=== PATIENT | female | born 1995 | race Caucasian/White ===

== ENCOUNTER 2016-09-28 13:34 | Outpatient (CLI) | payer MEDICAID | END 2016-09-28 13:35 | disposition home or self-care (01) | DX: K29.70 Gastritis, unspecified, without bleeding (principal) ==

== ENCOUNTER 2016-10-03 16:15 | Outpatient (CLI) | payer MEDICAID | END 2016-10-03 16:30 | disposition home or self-care (01) | LOC: RT.N 16:15 | PROVIDERS: ATTEND Physician Assistant | DX: R00.0 Tachycardia, unspecified (principal) | CPT/HCPCS: 93005 ==

== ENCOUNTER 2017-05-12 09:44 | Emergency (ER) | payer MEDICAID ==
--- NOTE | 2017-05-12 10:44 | XRAY Preliminary Report ---
Exam: XR KNEE 4 VIEW RT IMPRESSION: Small amount of knee joint effusion without degenerative arthritis, bony lesion or sublux ation, of uncertain etiology. [facility] SITE ID: [id number]
--- NOTE | 2017-05-12 10:47 | XRAY Report ---
EXAM: RIGHT KNEE RADIOGRAPHY EXAM DATE: 05/12/2017 10:18 AM. CLINICAL HISTORY: Pain for 3 days, denies injury. COMPARISON: None. TECHNIQUE: 4 views. FINDINGS: Bones: No fractures or bone lesions. Joints: Small amount of effusion without degenerative process. No subluxations. Soft Tissues: No soft tissue swelling or calcification. IMPRESSION: Small amount of knee joint effusion without degenerative arthritis, bony lesion or sublux ation, of uncertain etiology. [facility] Referring Provider Line: [phone] SITE ID: [id number]
--- NOTE | 2017-05-12 12:16 | ED Physician Documentation ---
PD HPI LOWER EXT INJURY - Stated complaint Stated Complaint: R KNEE PX - Chief complaint Chief Complaint: Ext Problem - History obtained from History obtained from: Patient, Family - History of Present Illness PD HPI LOW EXT INJURY LOCATION: Right, Knee Type of injury: Other (unknown injury) Where injury occurred: Home Timing - onset: How many days ago (3) Timing - duration: Days (3) Timing - details: Gradual onset, Still present Improved by: Rest, Immobilization Worsened by: Other (weight bearing) Associated symptoms: No: Weakness, Numbness, Tingling, Swelling Contributing factors: No: Anticoagulated Similar symptoms before: Has not had sx before Recently seen: Not recently seen - Additional information Additional information: 21 y/o female awoke 3 days ago with pain in the anterior calf below the knee without explanation. The pain has shifted to the knee and worsened. It is not present at rest but present with weight bearing and causing a limp. She has not had an injury that she can recall and she denies excessive walking. She did have a job she was on her feet for long hours but she quit that about 10 days ago and she denies any pain in the knee then. She usually is inactive. She has not had a fever and she does not feel ill. Review of Systems Constitutional: denies: Fever, Chills, Myalgias, Fatigue, Sweats Eyes: denies: Decreased vision Ears: denies: Ear pain Nose: denies: Congestion Throat: denies: Sore throat Cardiac: denies: Chest pain / pressure, Palpitations Respiratory: denies: Dyspnea, Cough GI: denies: Abdominal Pain, Nausea, Vomiting, Constipation, Diarrhea : denies: Dysuria, Frequency Skin: denies: Rash Musculoskeletal: reports: Joint pain, Joint swelling, Pain with weight bearing. denies: Neck pain, Back pain PD PAST MEDICAL HISTORY - Past Medical History Past Medical History: Yes Cardiovascular: None Respiratory: Asthma Neuro: None Endocrine/Autoimmune: None GI: None - Past Surgical History Past Surgical History: No - Present Medications Home Medications: Ambulatory Orders Medication Instructions Recorded Confirmed Albuterol Sulfate [Proair Hfa 05/12/17 Inhaler] - Allergies Allergies/Adverse Reactions: Allergies Allergy/AdvReac Type Severity Reaction Status Date / Time No Known Drug Allergies Allergy Verified 04/13/16 09:31 - Social History Does the pt smoke?: No Smoking Status: Never smoker Does the pt drink ETOH?: No Does the pt have substance abuse?: No - Immunizations Immunizations are current?: Yes PD ED PE NORMAL - Vitals Vital signs reviewed: Yes - General General: Alert and oriented X 3, No acute distress, Well developed/nourished - HEENT HEENT: Atraumatic, PERRL, EOMI - Respiratory Respiratory: No respiratory distress - Derm Derm: Normal color, Warm and dry, No rash - Extremities Extremities: No deformity, No edema, No calf tenderness / cord, Other (There is a non-tender palpable effusion and the ligaments to the right knee are stable to testing. The knee runs through a full ROM without pain but she does limp with weight bearing. ) - Neuro Neuro: Alert and oriented X 3, No motor deficit, No sensory deficit, Normal speech Eye Opening: Spontaneous Motor: Obeys Commands Verbal: Oriented GCS Score: 15 - Psych Psych: Normal mood, Normal affect Results - Vitals Vitals: Vital Signs - 24 hr 05/12/17 09:51 Temperature 36.1 C L Heart Rate 91 Respiratory 18 Rate Blood Pressure 126/86 H O2 Saturation 98 Oxygen O2 Source Room air - Rads (name of study) right knee Radiology: Prelim report reviewed (Impression: Small amount of knee joint effusion without degenerative arthritis, bony lesion or subluxation, of uncertain etiology.), EMP read indepedently, See rad report PD MEDICAL DECISION MAKING - ED course Complexity details: reviewed old records, reviewed results, re-evaluated patient , considered differential, d/w patient, d/w family ED course: 21-year-old female who is generally quite sedentary has developed pain in her right knee. She has a small joint effusion has pain with weightbearing. She is able to move the knee through a good range of motion without evidence of ligamentous injury.She has not had fever she does not feel ill does not have rest pain and my concern for infection is low. We have given her a dose of dexamethasone here in the emergency department we placed her onto some crutches and offered follow-up with orthopedics. Departure - Departure Disposition: 01 Home, Self Care Clinical Impression: Effusion of knee joint right Condition: Stable Instructions: ED Effusion Knee Follow-Up: [facility] [Provider Group] Comments: Today it appears you have an effusion in the knee joint that is small but present. If you develop a fever or worsening pain return to the ED for re- evaluation
[2017-05-12] MEDS ORDERED: DEXAMETHASONE 10 MG/ML VIAL PO STA (12:17)
[2017-05-12 12:38] VITALS: BP 128/90
== END 2017-05-12 12:36 | disposition home or self-care (01) ==
LOC: ED 09:44
DX: M25.461 Effusion, right knee (principal); J45.909 Unspecified asthma, uncomplicated
CPT/HCPCS: 99283

== ENCOUNTER 2017-07-31 17:29 | Emergency (ER) | payer MEDICAID ==
--- NOTE | 2017-07-31 18:25 | ED Physician Documentation ---
History of Present Illness - Stated complaint Stated Complaint: L EAR PX - Chief complaint Chief Complaint: Heent - History obtained from History obtained from: Patient, Family - History of Present Illness Timing: How many weeks ago (1) Pain level max: 4 Pain level now: 2 Quality: intermittent, sharp Improved by: nothing Worsened by: palpation - Additonal information Additional information: Patient is a 22-year-old female who presents to the emergency department with Left sided cheek/ear pain for the past week. No fevers. No rhinorrhea. No congestion. Review of Systems Constitutional: denies: Fever, Chills Ears: denies: Drainage/discharge, Tinnitus/ringing Nose: denies: Rhinorrhea / runny nose, Congestion Throat: denies: Sore throat Cardiac: denies: Chest pain / pressure Respiratory: denies: Cough GI: denies: Abdominal Pain, Nausea, Vomiting, Diarrhea : denies: Dysuria, Frequency, Hesitancy, Now EGA Skin: denies: Rash PD PAST MEDICAL HISTORY - Past Medical History Cardiovascular: None Respiratory: Asthma Neuro: None Endocrine/Autoimmune: None GI: None - Past Surgical History Past Surgical History: No - Present Medications Home Medications: Ambulatory Orders Medication Instructions Recorded Confirmed Albuterol Sulfate [Proair Hfa 05/12/17 Inhaler] - Allergies Allergies/Adverse Reactions: Allergies Allergy/AdvReac Type Severity Reaction Status Date / Time No Known Drug Allergies Allergy Verified 07/31/17 17:48 - Social History Does the pt smoke?: No Smoking Status: Never smoker Does the pt drink ETOH?: No Does the pt have substance abuse?: No - Immunizations Immunizations are current?: Yes PD ED PE NORMAL - Vitals Vital signs reviewed: Yes - General General: Alert and oriented X 3, No acute distress - HEENT HEENT: Ears normal, Moist mucous membranes, Pharynx benign, Other (Tender to palpation just below the earlobe of the left ear and over the parotid gland in that same area. Mild swelling present. Normal intraoral exam. No bony tenderness. No mastoid tenderness. No overlying skin changes) - Neck Neck: Supple, no meningeal sign - Derm Derm: Warm and dry - Neuro Neuro: Alert and oriented X 3 - Psych Psych: Normal mood, Normal affect Results - Vitals Vitals: Vital Signs - 24 hr 07/31/17 17:45 Temperature 36.6 C Heart Rate 112 H Respiratory 20 Rate Blood Pressure 143/91 H O2 Saturation 99 Oxygen O2 Source Room air PD MEDICAL DECISION MAKING - ED course Complexity details: considered differential, d/w patient ED course: Patient is a 22-year-old female who presents to the emergency department with tenderness just below the left ear, unclear etiology, possible lymph node versus parotitis? No fevers. Well-appearing, nontoxic. We will continue supportive care and see how she progresses. No evidence of mastoiditis, otitis media or externa. Patient counseled regarding signs and symptoms for which I believe and urgent re-evaluation would be necessary. Patient with good understanding of and agreement to plan and is comfortable going home at this time This document was made in part using voice recognition software. While efforts are made to proofread this document, sound alike and grammatical errors may occur. Departure - Departure Disposition: 01 Home, Self Care Clinical Impression: Parotitis Condition: Good Instructions: ED Cervical Adenitis No Abx Tx Follow-Up: your,doctor in 1 week if not better [Other] Comments: The cause of your symptoms is unclear today, but may be related to swelling of your lymph nodes or parotid gland. This should improve over the next week. Return if you worsen. You can use Motrin or Tylenol as needed for pain as well as warm compresses.
[2017-07-31 18:33] VITALS: BP 133/99
== END 2017-07-31 18:39 | disposition home or self-care (01) ==
LOC: ED 17:29
DX: K11.20 Sialoadenitis, unspecified (principal)
CPT/HCPCS: 99282; 99283

== ENCOUNTER 2018-05-24 23:33 | Emergency (ER) | payer MEDICAID ==
--- NOTE | 2018-05-24 23:54 | ED Physician Documentation ---
PD HPI DYSPNEA - Stated complaint Stated Complaint: DIFF BREATHING - Chief complaint Chief Complaint: Resp - History obtained from History obtained from: Patient - History of Present Illness Timing - onset: Today, Last night Timing - onset during: Light activity Timing - details: Gradual onset, Still present Inciting event(s): Out of meds, URI Improved by: Inhaler/neb Worsened by: Coughing Associated symptoms: Cough, Wheezing, Chest pain / discomfort (tightness). No: Fever Similar symptoms before: Diagnosis (asthma, and has had exac without infections, but does have cough and malaise this time.) Recently seen: Not recently seen Review of Systems Constitutional: denies: Fever Nose: reports: Rhinorrhea / runny nose, Congestion Throat: denies: Sore throat Respiratory: reports: Dyspnea, Cough, Wheezing GI: reports: Abdominal Pain, Nausea. denies: Vomiting : denies: Dysuria, Frequency Skin: denies: Rash Musculoskeletal: reports: Back pain. denies: Neck pain Neurologic: denies: Near syncope, Altered mental status PD PAST MEDICAL HISTORY - Past Medical History Cardiovascular: None Respiratory: Asthma Endocrine/Autoimmune: None GI: None - Past Surgical History Past Surgical History: No - Present Medications Home Medications: Ambulatory Orders Medication Instructions Recorded Confirmed Albuterol Sulfate [Proair Hfa 05/12/17 Inhaler] Albuterol Sulfate [Proventil Hfa 1 - 2 puffs IH Q4H PRN #1 07/31/17 Inhaler] [email or web address] Albuterol 2.5 mg INH Q4H PRN #30 neb 05/25/18 Albuterol Sulf [Ventolin Hfa 2 - 3 puffs INH Q4HR PRN #1 inhaler 05/25/18 Inhaler] Benzonatate [Tessalon Perle] 100 - 200 mg PO TID PRN #30 capsule 05/25/18 Dexamethasone [Decadron] 4 mg PO DAILY #5 tablet 05/25/18 Nebulizer [Truneb Nebulizer] 1 each MC QID #1 each 05/25/18 - Allergies Allergies/Adverse Reactions: Allergies Allergy/AdvReac Type Severity Reaction Status Date / Time No Known Drug Allergies Allergy Verified 05/24/18 23:38 - Social History Does the pt smoke?: No Smoking Status: Never smoker Does the pt drink ETOH?: No Does the pt have substance abuse?: No - Immunizations Immunizations are current?: Yes PD ED PE NORMAL - Vitals Vital signs reviewed: Yes - General General: Alert and oriented X 3, Well developed/nourished - HEENT HEENT: Ears normal, Pharynx benign - Cardiac Cardiac: RRR (regular but fast rate o), No murmur - Respiratory Respiratory: No respiratory distress. No: Clear bilaterally (diffuse I/E wheezing without congested sounds. ) - Abdomen Abdomen: Soft, Non tender - Female Female : Deferred Results - Vitals Vitals: Vital Signs - 24 hr 05/24/18 05/25/18 05/25/18 23:35 00:09 00:57 Temperature 36.5 C Heart Rate 128 H Respiratory 22 18 18 Rate Blood Pressure 136/92 H O2 Saturation 99 05/25/18 01:13 Temperature Heart Rate 122 H Respiratory 18 Rate Blood Pressure 137/88 H O2 Saturation 100 Oxygen O2 Source Room air PD MEDICAL DECISION MAKING - ED course Complexity details: reviewed results, re-evaluated patient (improved with neb treatments, stepwide until feeling improved enough for home. She responded better to Neb than to MDI previously and so asked for home nebulizer. ), considered differential, d/w patient Departure - Departure Disposition: Home, Self Care Clinical Impression: Asthma Qualifiers: Asthma severity: mild Asthma persistence: intermittent Asthma complication type: with acute exacerbation Qualified Code(s): J45.21 - Mild intermittent asthma with (acute) exacerbation Upper respiratory infection Qualifiers: URI type: unspecified URI Qualified Code(s): J06.9 - Acute upper respiratory infection, unspecified Condition: Stable Record reviewed to determine appropriate education?: Yes Instructions: ED URI Viral W Wheezing Prescriptions: Albuterol Sulf [Ventolin Hfa Inhaler] 2 - 3 puffs INH Q4HR PRN #1 inhaler PRN Reason: Shortness Of Air/Wheezing Albuterol 2.5 mg INH Q4H PRN #30 neb PRN Reason: Wheezing Benzonatate [Tessalon Perle] 100 - 200 mg PO TID PRN #30 capsule PRN Reason: Cough Dexamethasone [Decadron] 4 mg PO DAILY #5 tablet Nebulizer [Truneb Nebulizer] 1 each MC QID #1 each Comments: Drink lots of fluids. Use albuterol inhaler or nebulizer 4 times a day for the next week and added times if needed. Tessalon if needed for cough. I would also use a steroid Decadron daily for 5 more days. This sounds likely to be chest cold developing and so he likely has some cough and phlegm. This commonly will last for several days to week. The cough itself may last even a couple of weeks past up he should be feeling better. Recheck if not improving over the next few days. Discharge Date/Time: 05/25/18 01:15
[2018-05-25] MEDS ORDERED: ALBUTEROL NEB 2.5 MG/3 ML INH STA ×2 (00:04→00:49)
[2018-05-25] MEDS ORDERED: NAPROXEN 250 MG TABLET PO STA (00:04)
[2018-05-25] MEDS ORDERED: DEXAMETHASONE 10 MG/ML VIAL PO STA (00:04)
[2018-05-25] MEDS ORDERED: CETIRIZINE 10 MG TABLET PO STA (00:04)
[2018-05-25 01:15] VITALS: BP 137/88
== END 2018-05-25 01:15 | disposition home or self-care (01) ==
LOC: ED 23:33
DX: J45.21 Mild intermittent asthma with (acute) exacerbation (principal); J06.9 Acute upper respiratory infection, unspecified
CPT/HCPCS: 94640; 99283; A9270

== ENCOUNTER 2021-12-25 21:42 | Emergency (ER) | payer MEDICAID ==
[2021-12-25] MEDS ORDERED: HYDROmorphone 1 MG/ML CARPUJECT IM STA (22:05)
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
[2021-12-25] MEDS ORDERED: oxyCODONE/ACET 5/325 Prepack 4 PO STA (23:44)
[2021-12-25] MEDS ORDERED: BACITRACIN ZINC OINT 1 PACKET TOP STA (23:49)
[2021-12-26 00:17] VITALS: BP 126/90
== END 2021-12-25 23:58 | disposition home or self-care (01) ==
LOC: ED 21:42
DX: T23.231A Burn of second degree of multiple right fingers (nail), not including thumb, initial encounter (principal); W86.0XXA Exposure to domestic wiring and appliances, initial encounter; Y93.G3 Activity, cooking and baking
CPT/HCPCS: 96372; 99283; 99284; J1170

== ENCOUNTER 2022-04-08 17:30 | Outpatient (CLI) | payer MEDICAID | END 2022-04-08 23:59 | disposition critical access hospital (66) | LOC: EMS 17:30 | DX: R51.9 Headache, unspecified (principal); M54.2 Cervicalgia; W22.8XXA Striking against or struck by other objects, initial encounter; Y92.032 Bedroom in apartment as the place of occurrence of the external cause; R50.9 Fever, unspecified | CPT/HCPCS: A0425; A0429 ==

== ENCOUNTER 2022-04-08 17:50 | Emergency (ER) | payer MEDICAID ==
[2022-04-08] MEDS ORDERED: SODIUM CHLORIDE 0.9% 1,000 ML IV STA (18:18)
--- NOTE | 2022-04-08 18:49 | XRAY Report ---
PROCEDURE: Chest 1 View X-Ray INDICATIONS: [facility] TECHNIQUE: One view of the chest was acquired. COMPARISON: None. FINDINGS: Surgical changes and devices: None. Lungs and pleura: Low lung volumes. No consolidation or effusion. Mediastinum: Mediastinal contours appear normal. Heart size is normal. Bones and chest wall: No suspicious bony lesions. Overlying soft tissues appear unremarkable. IMPRESSION: No acute radiographic abnormality. Low lung volumes. Reviewed by: Jose Alberto Melendez MD on 04/08/2022 6:47 PM [facility] Approved by: Jose Alberto Melendez MD on 04/08/2022 6:47 PM [facility] Station ID: [id number]
[2022-04-08] MEDS ORDERED: KETOROLAC 30 MG/ML VIAL IVP STA (19:25)
--- NOTE | 2022-04-08 19:31 | ED Physician Documentation ---
History of Present Illness - Stated complaint Stated Complaint: UPPER RESP INFECTION/HEAD INJURY - Chief complaint Chief Complaint: Trauma Hd/Nk - History obtained from History obtained from: Patient - Additonal information Additional information: 26yF with pmh asthma p/w 2 days of viral URI symptoms as well as weakness this evening and stutter. Patient came in after trying to lie in bed, missing, and hitting the back of her head on desk without loc. patient states it was a gentle hit but she started stuttering thereafter and felt weak in the shower about 20 minutes later. endorses constant, aching, gradual onset R neck pain radiating to lower back as well as full body myalgias. + sick contacts. Review of Systems Ten Systems: 10 systems reviewed and negative Constitutional: denies: Fever, Chills Throat: reports: Sore throat Respiratory: reports: Cough. denies: Dyspnea GI: denies: Nausea Neurologic: reports: Head injury. denies: Headache, LOC PD PAST MEDICAL HISTORY - Past Medical History Cardiovascular: None Respiratory: Asthma Neuro: None Endocrine/Autoimmune: None GI: None RECORDIST CHIEF: None : None HEENT: None Psych: Depression Musculoskeletal: None Derm: None - Past Surgical History Past Surgical History: No - Present Medications Home Medications: Ambulatory Orders Medication Instructions Recorded Confirmed Albuterol Sulfate [Proventil Hfa 1 - 2 puffs IH Q4H PRN #1 07/31/17 12/25/21 Inhaler] [email or web address].ad Benzonatate [Tessalon] 100 mg PO TID #30 tab 04/08/22 Dextromethorphan HBr [Delsym Cough] 15 mg PO QDDINNER PRN #20 tablet 04/08/22 guaiFENesin [Guaifenesin ER] 600 mg PO QDBREAKFAST PRN #20 tab 04/08/22 - Allergies Allergies/Adverse Reactions: Allergies Allergy/AdvReac Type Severity Reaction Status Date / Time No Known Drug Allergies Allergy Verified 04/08/22 18:08 - Social History Does the pt smoke?: No Smoking Status: Never smoker Does the pt drink ETOH?: No Does the pt have substance abuse?: No - Immunizations Immunizations are current?: Yes - POLST Patient has POLST: No PD ED PE NORMAL - Vitals Vital signs reviewed: Yes - General General: Alert and oriented X 3, No acute distress, Well developed/nourished - HEENT HEENT: Atraumatic, PERRL, EOMI, Moist mucous membranes, Pharynx benign, Other (mild oropharyngeal erythema) - Neck Neck: No bony TTP, Other (R posterior neck discomfort to palpation) - Cardiac Cardiac: RRR - Respiratory Respiratory: No respiratory distress, Clear bilaterally - Abdomen Abdomen: Non tender, Non distended - Back Back: No spinal TTP - Derm Derm: Normal color, Warm and dry - Extremities Extremities: No deformity - Neuro Neuro: No motor deficit, No sensory deficit, Other (c collar removed per nexus criteria) Eye Opening: Spontaneous Motor: Obeys Commands Verbal: Oriented GCS Score: 15 - Psych Psych: Other (tearful affect, reassured after exam) Results - Vitals Vitals: Vital Signs - 24 hr 04/08/22 04/08/22 17:58 20:03 Temperature 37.7 C Heart Rate 128 H 120 H Respiratory 34 H 20 Rate Blood Pressure 153/99 H 138/95 H O2 Saturation 96 94 Oxygen O2 Source Room air PD MEDICAL DECISION MAKING - ED course ED course: Suspect flu versus other viral illness in this otherwise healthy asthmatic woman. patient with benign lung exam, no wheezing. cxr benign. neuro exam nonfocal. plan to finish ivf, administer toradol, reevaluate. Departure - Departure Disposition: 01 Home, Self Care Clinical Impression: Viral URI with cough Condition: Good Instructions: ED Viral Syndrome Prescriptions: Dextromethorphan HBr [Delsym Cough] 15 mg PO QDDINNER PRN #20 tablet PRN Reason: Cough guaiFENesin [Guaifenesin ER] 600 mg PO QDBREAKFAST PRN #20 tab PRN Reason: Cough Benzonatate [Tessalon] 100 mg PO TID #30 tab Comments: You were seen in the ED for viral upper respiratory symptoms, likely flu or cold, as well as weakness and hitting your head. You should get lots of rest, hydrate, and follow up with your primary care doctor. Take tylenol or motrin as needed for fever and pain/body aches. Return to the ED if you have new or worsening symptoms or other concerns.
[2022-04-08] MEDS ORDERED: LORazepam 1 MG TABLET PO STA (19:55)
[2022-04-08 20:24] VITALS: BP 138/95
[2022-04-09] LABS: CORONAVIRUS 229E-RESP PCR NOT DETECTED; CORONAVIRUS HKU1-RESP PCR NOT DETECTED; CORONAVIRUS NL63-RESP PCR NOT DETECTED; CORONAVIRUS OC43-RESP PCR NOT DETECTED; HUMAN METAPNEUMOVIRUS NOT DETECTED; INFLUENZA A- RESP PCR PANEL NOT DETECTED; RHINOVIRUS/ENTEROVIRUS NOT DETECTED; SARS-CoV-2 -RESP PCR PANEL NOT DETECTED
[2022-04-09 00:01] LABS: B. PARAPERTUSSIS- RESP PCR PAN NOT DETECTED; B. PERTUSSIS- RESP PCR PANEL NOT DETECTED; C. PNEUMONIAE- RESP PCR PANEL NOT DETECTED; INFLUENZA B - RESP PCR PANEL NOT DETECTED; M. PNEUMONIAE- RESP PCR PANEL NOT DETECTED; PARAINFLUENZA VIRUS 1 NOT DETECTED; PARAINFLUENZA VIRUS 2 NOT DETECTED; PARAINFLUENZA VIRUS 3 NOT DETECTED; PARAINFLUENZA VIRUS 4 NOT DETECTED; RSV- RESP PCR PANEL NOT DETECTED
== END 2022-04-08 20:39 | disposition home or self-care (01) ==
LOC: EDUNIT# → ED 17:50
DX: J06.9 Acute upper respiratory infection, unspecified (principal); Z20.822 Contact with and (suspected) exposure to COVID-19
CPT/HCPCS: 71045; 87633; 96374; 99284; J8499